=== PATIENT | male | born 1970 | race Two or more races ===

== ENCOUNTER → 2017-03-08 | Day surgery (SDC) | payer OTHER ==
[2017-03-04 13:03] VITALS: BMI 33.4
[~2017-03-08] MED LIST: LACTATED RINGERS 1,000 ML IV ONE; LACTATED RINGERS 1,000 ML IV SCH; LIDOCAINE 1% 20 ML VIAL (10MG/ML) FOR IV START INTRADERMA PRN; PROPOFOL 10 MG/ML 20 ML VIAL IV ONE
[2017-03-08 09:57] VITALS: RESP 18; TEMP 98.3
--- NOTE | 2017-03-08 11:53 | P.PCN ---
Date of Procedure: 03/08/17 Procedure(s) Performed: Procedure: Esophagogastroduodenoscopy and biopsy. Preoperative diagnosis: Chronic reflux and regurgitation. Postoperative diagnosis: 1. Small sliding hiatal hernia with no obvious esophagitis or complicated reflux disease. 2. Mild antral gastritis. 3. Multiple biopsies obtained from the duodenum, antrum and esophagus. Preparation and sedation: Was provided by anesthesia. Brief clinical history: The patient is a 56-year-old male with chronic heartburn over the last several years with issues with regurgitation especially in the supine position that he has been experiencing over the last year while on therapy for that time. No dysphagia, odynophagia or bleeding or other alarm symptoms. This evaluation was requested to assess for esophagitis, complicated reflux disease or other pathology. Procedure: With the patient on his left lateral decubitus position and after informed consent and adequate sedation, I passed the Olympus-GIF 160 video upper endoscope through the cricopharyngeus down the esophagus. GE junction was around 39 cm from the incisors and there was a small sliding hiatal hernia. The esophagus did not show any obvious erosions, ulcers, strictures or Funk 's esophagus. The endoscope was then passed into the stomach which was insufflated with air and inspected in detail including the retroflex cardia. There was some mottling and erythema in the antrum but no ulcers or erosions. Pyloric channel, duodenal bulb, post bulbar area and descending duodenum appeared within normal limits. I obtained biopsies from the duodenum in addition to biopsies from the antrum and esophagus before the endoscope was withdrawn. The patient tolerated the procedure well. Plan: The patient was reassured. Will await biopsy results. He will follow up with you as planned and further plans will be made based on his course. I would be happy to see in the future if his symptoms persist.
[2017-03-08 12:18] VITALS: BP 127/84; PULSE 68
== END | disposition home or self-care (01) ==
LOC: ORWHC2ENDO 09:43
DX: K29.51 Unspecified chronic gastritis with bleeding (principal); K44.9 Diaphragmatic hernia without obstruction or gangrene; K21.9 Gastro-esophageal reflux disease without esophagitis; Z79.1 Long term (current) use of non-steroidal anti-inflammatories (NSAID); Z79.899 Other long term (current) drug therapy
CPT/HCPCS: 88305; 88342; 43239; J2704

== ENCOUNTER → 2019-06-06 | Outpatient (CLI) | payer OTHER ==
--- NOTE | 2019-06-06 20:17 | CONS ---
CONSULTATION REASON FOR CONSULTATION: Somnambulism. This is a 48-year-old male patient with previous history of opiate/narcotic dependence, currently on methadone 100 mg p.o. daily, coming in due to concerns about somnambulism/sleepwalking. He has been doing this since a young age, and apparently over the past few years things have gotten worse. The patient lives with his family in a basement. He goes to bed between 3 p.m. and 7 p.m. and he wakes up at midnight and sometimes at 2 a.m., depending on the number of hours that he sleeps. He feels that he is averaging only 4-5 hours of sleep. 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 His main concern is sleepwalking. He tells me that he is waking up in strange places in the house. Sometimes he gets up from his basement, where he sleeps, up to the kitchen, and he was found doing some stuff, yet never to the point where he has left the house. He generally gets out of bed and walks around. This has not been witnessed by family, which I find strange, knowing that he is living with other family members in the house. He sleeps on a chair and he does have some recollection of the episodes that happened the next morning. His sleep is obviously disturbed. No history of anxiety. No history of depression. No history of night terrors. He denies doing any activities such as dressing, talking or eating. He does not leave the house. He does not drive the car. He does not engage in unusual behavior such as urinating around or doing any other sexual activity. He has never been injured by falling or jumping, etc. He also has not become violent during sleepwalking. No history of any seizure activity. No history of any significant psychiatric disorder. He has history of substance abuse and currently is on methadone. He does not take any hypnotics or sedative medication. He does not take any sleeping pills. He does have nocturnal heartburn. PAST MEDICAL HISTORY: 1. Opiate dependence, maintained on methadone 100 mg daily. 2. Acid reflux. PAST SURGICAL HISTORY: Includes right knee surgery and left elbow reconstruction. DRUG ALLERGIES: NOT KNOWN. OUTPATIENT MEDICATIONS: Outpatient medications include omeprazole 40 daily, methadone 100 daily, orphenadrine 100 mg p.o. daily and ferrous sulfate 325 mg p.o. daily. SOCIAL HISTORY: The patient is a previous substance abuser of heroin and prescription drugs such as [place]. Currently on methadone. No smoking. No alcoholism. FAMILY HISTORY: Negative for sleepwalking. REVIEW OF SYSTEMS: Fourteen-point review of system was done. No snoring. No quitting breathing. No choking or gasping for air. No chest pain or heart palpitations. He has some degree of increased anxiety, for which he is on no treatment at this point in time. No sleep paralysis. No hallucinations. No cataplexy. No head trauma. No meningitis. PHYSICAL EXAMINATION: VITAL SIGNS: BP is 133/84, pulse 84, respirations 16, temperature 98.0, saturation 97% on room air. Height is 5 feet 6 inches, weight 311. Neck size is 15-1/2 inches. GENERAL APPEARANCE: Calm, comfortable. HEAD: Atraumatic, normocephalic. NECK: Supple. No JVD. No goiter or neck masses. LUNGS: Clear to auscultation. HEART: Heart sounds are regular rate and rhythm. Normal S1, S2. No S3, S4. No murmurs. ABDOMEN: Soft, nontender. No organomegaly. EXTREMITIES: No edema. No cyanosis or clubbing. 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 2. Irregular sleep-wake cycle in a patient who has significant advancement in his sleep phase; advanced sleep phase disorder. 3. Sleep schedule disruption. 4. Poor sleep hygiene. 5. History of substance abuse, currently on methadone. 6. Acid reflux. 7. History of narcotic dependence. Currently taking methadone. PLAN: I discussed with the patient the possibility of trying to work on his sleep schedule. He seems to be having a component of advanced sleep phase syndrome and possibly a component of sleep deprivation which could potentially exacerbate the underlying condition. He is not really ready to make any adjustments and he likes the current pattern where he is awake in the evening and he sleeps mainly between 3 to 6 p.m. and up to midnight and sometimes longer. I recommend lifestyle changes and home remedies. I suggested making the home environment and the basement environment safe. Fortunately his sleepwalking has not led to any significant injuries. I suggested that he lock the exterior door to the basement to make sure he does not get out or go into the house and continue with his sleepwalking activity. I asked him to get adequate sleep. Obviously fatigue can contribute to sleepwalking along with sleep deprivation. I asked him to establish a regular and relaxing routine before bedtime and avoid alcoholic beverages. I do not think there is a need for drug therapy at this point, especially with his history of substance abuse. I would be very hesitant to try this patient on any form of benzodiazepines for his parasomnia. Would like to implement lifestyle changes and home remedies. He will be referred back to his primary care physician with the above- mentioned recommendations. SUSAN / CHRIS: [id number] /
== END | disposition home or self-care (01) ==
LOC: SLEEP 14:51
PROVIDERS: ATTEND Internal Medicine Critical Care Medicine
DX: F51.3 Sleepwalking [somnambulism] (principal); K21.9 Gastro-esophageal reflux disease without esophagitis; F11.20 Opioid dependence, uncomplicated; Z79.899 Other long term (current) drug therapy
CPT/HCPCS: 99211